=== PATIENT | male | born 1980 | race Caucasian/White ===

== ENCOUNTER 2019-01-09 05:56 | Observation (INO) | payer BC ==
[2019-01-09] VITALS (23 sets, daily range): BP systolic 101–131; BP diastolic 51–81; PULSE 82–112; RESP 10–21; Ht 182.9 cm; Wt 119.6 kg
[~2019-01-09] VITALS: Ht 182.9 cm; Wt 119.6 kg
[~2019-01-09 05:56] MED LIST: FINA1TAB16 PO; HYDR-3980 PO; TEST200V19 IM
[2019-01-09] MEDS ORDERED: ROPIVACAINE 0.5 % 30 ML VIAL ONE ×3 (06:51→13:46)
[2019-01-09] MEDS ORDERED: POLYMYXIN/BACITRACIN 1L IRRIG ONE ×2 (06:51→13:22)
[2019-01-09] MEDS ORDERED: BACITRACIN/POLYMYXIN 28.35 GM OINT TOP ONE (06:52)
--- NOTE | 2019-01-09 07:11 | PREAC ---
Date/Time of Note Date/Time of Note DATE: 01/09/19 TIME: 07:07 Anesthesia Eval and Record Evaluation Time Pre-Procedure Interview DATE: 01/09/19 TIME: 07:07 Age 38 Sex male NPO: 8 hrs Preoperative diagnosis Left ankle subtalar and talonavicular arthritis Planned procedure Left ankle subtalar and talonavicular arthrodesis with iliac crest bone graft and allograft Past Medical History Past Medical History: Includes Pulm: Smoking Hx GI: Obesity Surgery & Anesthesia Issues No known issue Meds Anticoagulation: No Beta Odette within 24 hr: No Reason Beta Odette not given: Pt. not on B-Odette Meds reviewed: Yes Allergies Coded Allergies: zolpidem (Verified Allergy, Unknown, 01/08/19) SLEEP WALKS Allergies Reviewed: Yes Labs/Studies Labs Reviewed: Reviewed by anesthesiologist test: N/A Pre-procedure Exam Airway: Adequate mouth opening Mallampati: Mallampati II Teeth: Normal Lung: Normal Heart: Normal ASA Physical Status ASA physical status: 2 Emergency: None Planned Anesthetic General/MAC: ETT Planned Pain Management Single shot nerve block, Parenteral pain med Pre-operative Attestations Prior to commencing anesthesia and surgery, the patient was re-evaluated, there was verification of: *The patient's identity *The results of appropriate recent lab work and preoperative vital signs *The above evaluation not changing prior to induction *Anesthetic plan, risk benefits, alternative and complications discussed with patient/family; questions answered; patient/family understands, accepts and wishes to proceed. EDUARD MACK MD Jan 09, 2019 07:11
[2019-01-09] MEDS ORDERED: LIDOCAINE 2% (SDV) 5 ML INJ ONE (07:24)
[2019-01-09] MEDS ORDERED: PROPOFOL 20 ML ONE (07:24)
[2019-01-09] MEDS ORDERED: SUCCINYLCHOLINE CHLORIDE 100 MG/5 ML SYG IV ONE (07:24)
[2019-01-09] MEDS ORDERED: NEOSTIGMINE 3 MG/3 ML SYRINGE ONE ×2 (07:24→07:33)
[2019-01-09] MEDS ORDERED: ROCURONIUM 50 MG INJ ONE ×2 (07:24→09:16)
[2019-01-09] MEDS ORDERED: GLYCOPYRROLATE 0.4 MG INJ ONE ×3 (07:24→07:33)
[2019-01-09] MEDS ORDERED: MIDAZOLAM 1 MG/ML 2 ML INJ ONE ×2 (07:25→08:07)
[2019-01-09] MEDS ORDERED: CEFAZOLIN 1 GM INJ ONE ×4 (07:33→13:09)
--- NOTE | 2019-01-09 08:03 | HPN ---
Date/Time of Note Date/Time of Note DATE: 01/09/19 TIME: 08:03 Interval H&P Admission Note Pt. seen H&P reviewed: No system changes TONYA RITTER MD Jan 09, 2019 08:03
[2019-01-09] MEDS ORDERED: HEPARIN 1000 UNITS/ML 10 ML INJ ONE (08:39)
[2019-01-09] MEDS ORDERED: POLYMYXIN/BACITRACIN 1L IRRIG IRR ONE (09:42)
[2019-01-09] MEDS ORDERED: ONDANSETRON 4 MG INJ IV PRN ×2 (11:00→18:00)
[2019-01-09] MEDS ORDERED: DIPHENHYDRAMINE 50 MG INJ IV PRN (11:00)
[2019-01-09] MEDS ORDERED: MEPERIDINE 25 MG INJ IV PRN (11:00)
[2019-01-09] MEDS ORDERED: OXYCODONE/ACETAMINOPHEN (5/325) TAB PO PRN ×2 (11:00)
[2019-01-09] MEDS ORDERED: MIDAZOLAM 1 MG/ML 2 ML INJ IV PRN (11:00)
[2019-01-09] MEDS ORDERED: FENTAnyl 50 MCG/ML VIAL IV PRN ×2 (11:00)
[2019-01-09] MEDS ORDERED: METOCLOPRAMIDE 10 MG INJ IV PRN (11:00)
[2019-01-09] MEDS ORDERED: HYDROmorphONE 1 MG/5 ML IV SYRINGE IV PRN ×2 (11:00)
[2019-01-09] MEDS: HYDROmorphONE 1 MG/5 ML IV SYRINGE IV PRN ×3 (14:15→14:36)
[2019-01-09] MEDS ORDERED: FENTAnyl 50 MCG/ML VIAL ONE (15:16)
[2019-01-09] MEDS ORDERED: ONDANSETRON 4 MG INJ ONE (15:17)
[2019-01-09] MEDS: FENTAnyl 50 MCG/ML VIAL IV PRN ×2 (15:19→16:18)
--- NOTE | 2019-01-09 15:25 | PAC ---
Date/Time of Note Date/Time of Note DATE: 01/09/19 TIME: 15:24 Post-Anesthesia Notes Post-Anesthesia Note Last documented vital signs Vital Signs Date Temp Pulse Resp B/P (MAP) Pulse Ox O2 O2 Flow FiO2 Time Delivery Rate 01/09/19 86 14 97 Room Air 14:46 01/09/19 101/51 14:26 (68) 01/09/19 98.9 14:14 Activity: WNL Respiratory function: WNL Cardiovascular function: WNL Mental status: Baseline Pain reasonably controlled: Yes Hydration appropriate: Yes Nausea/Vomiting absent: Yes Comments BT: 98.7 EDUARD MACK MD Jan 09, 2019 15:25
--- NOTE | 2019-01-09 16:02 | CONS ---
Assessment/Plan Assessment/Plan Assessment/Plan (Daily) Patient status post left ankle subtalar and talonavicular arthrodesis with iliac crest bone graft and allograft Past medical history of IV drug abuse with heroin Low pain threshold We will begin Dilaudid 1 mg continuous dose and Dilaudid 2 mg every 3 hours as needed with very low dose of lorazepam every 6 hours as needed we will watch patient very closely. Although I believe he is tolerant to opioids secondary to very high concentrations of [place] and tramadol he was taken prior to hospitalization and the past medical history of IV heroin use. Consultation Date/Type/Reason Admit Date/Time Jan 09, 2019 at 15:36 Date/Time of Note DATE: 01/09/19 TIME: 16:00 Hx of Present Illness This is a 38-year-old male who is postop left ankle subtalar and talonavicular arthrodesis with iliac crest bone graft and allograft. I am seeing patient in postop recovery at this time. Patient has a past medical history of addiction as he described it where he was IV heroin user. Although he states he has not used in many years. He has been maintained on Washington and Ultram for pain management by a pain management physician. However patient states he uses whatever he feels as necessary not necessarily scheduled doses. Patient's past medical history is significant for left ankle ORIF in the past secondary to a post traumatic injury. Since that time he is functioning reasonably well until pain returned and required above surgical intervention. Patient is comfortable at this time postoperatively but he has received a block and understands that his pain will return. Prior to surgery was described his pain is 10/10 unable to control the current pain control medication it interferes with his physical functioning social relationship and sleeping patterns. Postoperatively he is received a combination of fentanyl Dilaudid and Demerol. Denies nausea vomiting itching mental cloudiness or drowsiness at this time. There is no past medical history of oversedation or overdose on recreational drug use illicit drug use he does not appear to be intoxicated unkempt he is not negotiating with me for certain pain medication but is adamant that he will not use trazodone for sleeping or Ambien. I have explained to him I do not uses drugs anyway. He u nderstands that because of his past medical history may be very difficult to control his pain and have given him options. First option is DIELECTRIC TESTER Dilaudid which she states he does not want to use does not want to follow the clock. Second option continuous low-dose drip of Dilaudid with pushes by nursing staff as needed, third option is combination of methadone and Dilaudid. He has chosen the option for continuous low-dose of DIELECTRIC TESTER with as needed pushes of Dilaudid. I have also discussed with him the use of lorazepam low-dose he is in agreement. Constitutional: no complaints, improved Eyes: no complaints ENT: no complaints Respiratory: no complaints Cardiovascular: no complaints Gastrointestinal: no complaints Genitourinary: no complaints Musculoskeletal: no complaints, other (Refer to history of present illness) Skin: no complaints Neurologic: no complaints Endocrine: no complaints Lymphatic: no complaints Psychological: no complaints, nl mood/affect Immunologic: no complaints Past Medical History Medical History: other (Noncontributory) Home Meds Reported Medications Hydrocodone/Acetaminophen (Washington 10-325 Tablet) 1 Each Tablet, 1 EACH PO Q6 PRN for PAIN, TAB 01/09/19 Finasteride* (Finasteride*) 1 Mg Tablet, 1 MG PO HS, TAB 01/09/19 Testosterone Cypionate (Testosterone Cypionate) 200 Mg/1 Ml Vial, 200 MG IM, VIAL 01/09/19 Medications Current Medications Hydromorphone HCl (Dilaudid) 0.2 mg PACU PRN IV MILD PAIN 1-3; Start 01/09/19 at 11:00; Stop 01/09/19 at 20:00 Hydromorphone HCl (Dilaudid) 0.4 mg PACU PRN IV MOD PAIN 4-6 Last administered on 01/09/19at 14:36; Admin Dose 0.2 MG; Start 01/09/19 at 11:00; Stop 01/09/19 at 20:00 Hydromorphone HCl (Dilaudid) 0.6 mg PACU PRN IV SEVERE PAIN 7-10; Start 01/09/19 at 11:00; Stop 01/09/19 at 20:00 Fentanyl (Sublimaze) 25 mcg PACU ORDER PRN IV MILD PAIN 1-3; Start 01/09/19 at 11:00; Stop 01/09/19 at 20:00 Fentanyl (Sublimaze) 50 mcg PACU ORDER PRN IV MOD PAIN 4-6 Last administered on 01/09/19at 15:19; Admin Dose 50 MCG; Start 01/09/19 at 11:00; Stop 01/09/19 at 20:00 Fentanyl (Sublimaze) 75 mcg PACU ORDER PRN IV SEVERE PAIN 7-10; Start 01/09/19 at 11:00; Stop 01/09/19 at 20:00 Oxycodone/ Acetaminophen (Percocet (5/ 325)) 1 tab PACU ORDER PRN PO .PAIN 1-5; Start 01/09/19 at 11:00; Stop 01/09/19 at 20:00 Oxycodone/ Acetaminophen (Percocet (5/ 325)) 2 tab PACU ORDER PRN PO .PAIN 6-10; Start 01/09/19 at 11:00; Stop 01/09/19 at 20:00 Ondansetron HCl (Zofran Inj) 4 mg PACU ORDER PRN IV NAUSEA/VOMITING Last administered on 01/09/19at 15:18; Admin Dose 4 MG; Start 01/09/19 at 11:00; Stop 01/09/19 at 20:00 Metoclopramide HCl (Reglan) 10 mg PACU ORDER PRN IV NAUSEA/VOMITING; Start 01/09/19 at 11:00; Stop 01/09/19 at 20:00 Meperidine HCl (Demerol) 25 mg PACU ORDER PRN IV .RIGORS Last administered on 01/09/19at 14:57; Admin Dose 25 MG; Start 01/09/19 at 11:00; Stop 01/09/19 at 20:00 Diphenhydramine HCl (Benadryl) 25 mg PACU ORDER PRN IV .PRURITUS; Start 01/09/19 at 11:00; Stop 01/09/19 at 20:00 Midazolam HCl (Versed) 0.5 mg PACU ORDER PRN IV .ANXIETY; Start 01/09/19 at 11:00; Stop 01/09/19 at 20:00 Allergies: Coded Allergies: zolpidem (Verified Allergy, Unknown, 01/09/19) SLEEP WALKS Past Surgical History Past Surgical Hx: other (Per history of present illness) Family History Significant Family History: other (Mother and father in good health) Social History Alcohol Use: none Smoking Status: Current every day smoker Drug Use: other (Heroin user in the past) Exam/Review of Systems Exam Vitals Vital Signs Date Temp Pulse Resp B/P (MAP) Pulse Ox O2 O2 Flow FiO2 Time Delivery Rate 01/09/19 86 14 97 Room Air 14:46 01/09/19 101/51 14:26 (68) 01/09/19 98.9 14:14 Constitutional: alert, oriented, well developed Psych: anxiety Head: normocephalic, atraumatic Eyes: nl conjunctiva, EOMI, nl lids, nl sclera, PERRL ENMT: nl external ears & nose, nl lips & teeth, nl nasal mucosa & septum Respiratory: clear to auscultation, normal air movement; No congested cough, No crackles/rales, No diminished breath sounds, No intercostal retraction, No labored breathing, No respirations, No tactile fremitus, No wheezing, No other Cardiovascular: regular rate and rhythm, nl pulses; No bruits, No diastolic murmur, No edema, No gallop, No irregular rhythm, No jugular venous distention (JVD), No murmurs/extra sounds, No rub, No systolic murmur, No S3, No S4, No other Gastrointestinal: soft, nl liver, spleen, non-tender Neurological: CREDIT OFFICER II-XII intact, nl mental status, nl speech, nl strength; No confused, No DTR's symmetric, No focal weakness, No lethargic, No numbness, No reflexes, No unresponsive, No other Medications Medication Current Medications Hydromorphone HCl (Dilaudid) 0.2 mg PACU PRN IV MILD PAIN 1-3; Start 01/09/19 at 11:00; Stop 01/09/19 at 20:00 Hydromorphone HCl (Dilaudid) 0.4 mg PACU PRN IV MOD PAIN 4-6 Last administered on 01/09/19at 14:36; Admin Dose 0.2 MG; Start 01/09/19 at 11:00; Stop 01/09/19 at 20:00 Hydromorphone HCl (Dilaudid) 0.6 mg PACU PRN IV SEVERE PAIN 7-10; Start 01/09/19 at 11:00; Stop 01/09/19 at 20:00 Fentanyl (Sublimaze) 25 mcg PACU ORDER PRN IV MILD PAIN 1-3; Start 01/09/19 at 11:00; Stop 01/09/19 at 20:00 Fentanyl (Sublimaze) 50 mcg PACU ORDER PRN IV MOD PAIN 4-6 Last administered on 01/09/19at 15:19; Admin Dose 50 MCG; Start 01/09/19 at 11:00; Stop 01/09/19 at 20:00 Fentanyl (Sublimaze) 75 mcg PACU ORDER PRN IV SEVERE PAIN 7-10; Start 01/09/19 at 11:00; Stop 01/09/19 at 20:00 Oxycodone/ Acetaminophen (Percocet (5/ 325)) 1 tab PACU ORDER PRN PO .PAIN 1-5; Start 01/09/19 at 11:00; Stop 01/09/19 at 20:00 Oxycodone/ Acetaminophen (Percocet (5/ 325)) 2 tab PACU ORDER PRN PO .PAIN 6-10; Start 01/09/19 at 11:00; Stop 01/09/19 at 20:00 Ondansetron HCl (Zofran Inj) 4 mg PACU ORDER PRN IV NAUSEA/VOMITING Last administered on 01/09/19at 15:18; Admin Dose 4 MG; Start 01/09/19 at 11:00; Stop 01/09/19 at 20:00 Metoclopramide HCl (Reglan) 10 mg PACU ORDER PRN IV NAUSEA/VOMITING; Start 01/09/19 at 11:00; Stop 01/09/19 at 20:00 Meperidine HCl (Demerol) 25 mg PACU ORDER PRN IV .RIGORS Last administered on 01/09/19at 14:57; Admin Dose 25 MG; Start 01/09/19 at 11:00; Stop 01/09/19 at 20:00 Diphenhydramine HCl (Benadryl) 25 mg PACU ORDER PRN IV .PRURITUS; Start 01/09/19 at 11:00; Stop 01/09/19 at 20:00 Midazolam HCl (Versed) 0.5 mg PACU ORDER PRN IV .ANXIETY; Start 01/09/19 at 11:00; Stop 01/09/19 at 20:00 JOSSELIN SAVAGE Jan 09, 2019 16:02
[2019-01-09] MEDS ORDERED: LORAZEPAM 2 MG INJ IV PRN (16:30)
[2019-01-09] MEDS: HYDROmorphONE 0.2 MG/ML PCA IV SCH ×2 (17:41→22:39)
--- NOTE | 2019-01-09 17:49 | SIPON ---
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 Postoperative Diagnosis left subtalar and talonavicular joint post-traumatic OA Operation/Procedure Performed Left left subtalar and talonavicular joint arthrodesis with allograft and autograft from left iliac crest Left iliac crest bone marrow aspirate harvest Left iliac crest allograft harvest Surgeon Perfecto Ritter MD assistant athletic trainer TY Torres Anesthesia: general (Dr Orozco), other (pop/adductor block) Estimated blood loss: minimal Transfusion Required none Specimen none TT: 120 min at 250 mm Hg Grafts/Implants 2 Arthrex 6.5 mm headless compression screws, 1 4.3 mm screw Arthrex Dynanite staple Arthrex Arthrocell Allograft Arthrex [facility] Augment Cancellous Allograft chips Complications none PERFECTO RITTER MD Jan 09, 2019 17:49
[2019-01-09] MEDS: CEFAZOLIN 1 GM/50 ML (PMX) 50 ML IVPB SCH ×2 (17:57→23:36)
[2019-01-09] MEDS ORDERED: DIPHENHYDRAMINE 25 MG CAP PO PRN (18:00)
[2019-01-09] MEDS: GABAPENTIN 300 MG CAP PO SCH (21:58)
[2019-01-09] MEDS: HYDROmorphONE 2 MG/ML SYG IV PRN (23:52)
[2019-01-10 00:26] VITALS: BP 111/74; PULSE 104; RESP 20
[2019-01-10] MEDS: ACETAMINOPHEN 325 MG TAB PO PRN ×2 (02:15→07:27)
[2019-01-10] MEDS: HYDROmorphONE 2 MG/ML SYG IV PRN ×4 (02:57→11:57)
[2019-01-10 03:30] VITALS: BP 127/73; PULSE 97; RESP 20
[2019-01-10] MEDS: CEFAZOLIN 1 GM/50 ML (PMX) 50 ML IVPB SCH ×2 (05:08→11:57)
[2019-01-10] MEDS: HYDROmorphONE 0.2 MG/ML PCA IV SCH (05:59)
--- NOTE | 2019-01-10 08:02 | CONS ---
Assessment/Plan Assessment/Plan Assessment/Plan (Daily) Did well overnight ... will stop TIRE MOUNTER last prn dose of IV Dilaudid to be given just prior to discharge. Thank You Consultation Date/Type/Reason Admit Date/Time Jan 09, 2019 at 15:36 Initial Consult Date Date/Time of Note DATE: 01/10/19 TIME: 07:58 Exam/Review of Systems Exam Vitals Vital Signs Date Temp Pulse Resp B/P (MAP) Pulse Ox O2 O2 Flow FiO2 Time Delivery Rate 01/10/19 98.4 97 20 127/73 100 03:30 (91) 01/10/19 Nasal 2.0 01:16 Cannula Intake and Output 01/09/19 01/09/19 01/10/19 1515:00 23:00 07:00 IntakeIntake Total 600 ml OutputOutput Total 50 ml 600 ml 200 ml BalanceBalance 550 ml -600 ml -200 ml Constitutional: alert, oriented, well developed Psych: anxiety Neurological: WINDOW SHADE INSTALLER II-XII intact, nl mental status, nl speech, nl strength Results Results 24hrs Laboratory Tests Test 01/10/19 07:32 Lab Scanned Report REFERENCE LAB Medications Medication Current Medications Hydromorphone HCl (Dilaudid) 2 mg Q3H PRN IV SEVERE PAIN LEVEL 7-10 Last administered on 01/10/19at 05:59; Admin Dose 2 MG; Start 01/09/19 at 16:30 Hydromorphone HCl (Dilaudid TIRE MOUNTER) 1.0 MG/HR CONTINUOUS RATE ... Q4PCA IV Last administered on 01/10/19at 05:59; Admin Dose 6 MG; Start 01/09/19 at 16:30 Lorazepam (Ativan) 0.5 mg Q6H PRN IV AGITATION Last administered on 01/09/19at 21:59; Admin Dose 0.5 MG; Start 01/09/19 at 16:30 Ondansetron HCl (Zofran Inj) 4 mg Q4H PRN IV NAUSEA AND/OR VOMITING Last administered on 01/10/19at 07:06; Admin Dose 4 MG; Start 01/09/19 at 18:00 Diphenhydramine HCl (Benadryl) 25 mg Q4H PRN PO ITCHING; Start 01/09/19 at 18:00 Rivaroxaban (Xarelto) 10 mg WITH DINNER PO ; Start 01/10/19 at 17:55 Acetaminophen (Tylenol Tab) 325 mg Q4H PRN PO MILD PAIN(1-3)OR ELEVATED TEMP Last administered on 01/10/19at 07:27; Admin Dose 325 MG; Start 01/09/19 at 18:00 Gabapentin (Neurontin) 300 mg TID PO Last administered on 01/09/19at 21:58; Admin Dose 300 MG; Start 01/09/19 at 21:00 Cefazolin Sodium 50 ml @ 100 mls/hr Q6 IVPB Last administered on 01/10/19at 05:08; Admin Dose 100 MLS/HR; Start 01/09/19 at 18:00; Stop 01/10/19 at 16:59 JOSSELIN SAVAGE Jan 10, 2019 08:02
[2019-01-10 08:16] VITALS: BP 124/74; PULSE 87; RESP 20
[2019-01-10] MEDS: GABAPENTIN 300 MG CAP PO SCH ×2 (09:07→12:08)
--- NOTE | 2019-01-10 12:28 | PN ---
Date/Time of Note Date/Time of Note DATE: 01/10/19 TIME: 12:22 Subjective Patient is doing well and would like to go home. 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 Seeing Dr. Falcon for pain management. Has appointment for followup in clinic in one week. Objective Vitals Vital Signs Date Temp Pulse Resp B/P (MAP) Pulse Ox O2 O2 Flow FiO2 Time Delivery Rate 01/10/19 98.6 87 20 124/74 95 08:16 (91) 01/10/19 Nasal 2.0 01:16 Cannula Intake and Output 01/09/19 01/09/19 01/10/19 1515:00 23:00 07:00 IntakeIntake Total 600 ml OutputOutput Total 50 ml 600 ml 200 ml BalanceBalance 550 ml -600 ml -200 ml PT AAOx3. Sitting comfortably in no distress. Has left foot splint. Can wiggle toes and has sensation distally at toes. Medications Medications Current Medications Hydromorphone HCl (Dilaudid) 2 mg Q3H PRN IV SEVERE PAIN LEVEL 7-10 Last administered on 01/10/19at 11:57; Admin Dose 2 MG; Start 01/09/19 at 16:30 Ondansetron HCl (Zofran Inj) 4 mg Q4H PRN IV NAUSEA AND/OR VOMITING Last administered on 01/10/19at 07:06; Admin Dose 4 MG; Start 01/09/19 at 18:00 Diphenhydramine HCl (Benadryl) 25 mg Q4H PRN PO ITCHING; Start 01/09/19 at 18:00 Rivaroxaban (Xarelto) 10 mg WITH DINNER PO ; Start 01/10/19 at 17:55 Acetaminophen (Tylenol Tab) 325 mg Q4H PRN PO MILD PAIN(1-3)OR ELEVATED TEMP Last administered on 01/10/19at 07:27; Admin Dose 325 MG; Start 01/09/19 at 18:00 Gabapentin (Neurontin) 300 mg TID PO Last administered on 01/10/19at 09:07; Admin Dose 300 MG; Start 01/09/19 at 21:00 Cefazolin Sodium 50 ml @ 100 mls/hr Q6 IVPB Last administered on 01/10/19at 11:57; Admin Dose 100 MLS/HR; Start 01/09/19 at 18:00; Stop 01/10/19 at 16:59 VTE Prophylaxis Risk score (from Ns)>0 risk: 8 SCD applied (from Ns): No SCD contraindication: low risk/ambulating, other Lines/Catheters IV Catheter Type: Peripheral IV Guo in Place: No Assessment/Plan Hospital Course Will discharge today. Assessment/Plan Doing well postoperatively and will be discharged home following final pain mgmt consult with Dr. Falcon for outpatient meds. DUNIA ARANDA PA-C Jan 10, 2019 12:28
--- NOTE | 2019-01-10 12:37 | PDOCDIS ---
Discharge Instructions DIAGNOSIS Discharge Diagnosis S/P uncomplicated left foot surgery. Doing well and pain managed by pain specialist. Will take aspirin as prescribed by Dr. Cardoso outpatient. CONDITION [id number] Patient Condition: Ketan Good HOME CARE INSTRUCTIONS: Mao Diet Instructions: Ketan Regular ACTIVITY: [id number] Activity Restrictions: [id number] Slowly Increase Activity Rest between Activity Avoid heavy lifting Do not operate Machinery Do not operate Power Tool Avoid Heavy Housework Keep Limb Elevated No Weight Bearing [id number] Bathing Restrictions: [id number] Shower [id number] Activity Restrictions [id number] Continue walker/crutch use Comment: with no weightbearing on left leg. FOLLOW UP/APPOINTMENTS Follow-up Plan Return to clinic in one week. REFERRALS [id number] Referring Provider: TONYA Kim MD, ABRAHAM PA-C Jan 10, 2019 12:37
[2019-01-10] MEDS ORDERED: RIVAROXABAN 10 MG TABLET PO SCH (17:55)
--- NOTE | 2019-01-16 10:45 | QN ---
Documentation Job number: [id number] TONYA RITTER MD Jan 16, 2019 10:45
--- NOTE | 2019-01-16 12:00 | OPR ---
DATE OF OPERATION: 01/09/2019 PREOPERATIVE DIAGNOSIS: 1. Left subtalar joint posttraumatic osteoarthritis. 2. Left talonavicular joint posttraumatic osteoarthritis POSTOPERATIVE DIAGNOSIS: 1. Left subtalar joint posttraumatic osteoarthritis. 2. Left talonavicular joint posttraumatic osteoarthritis OPERATION PERFORMED: 1. Left foot subtalar joint arthrodesis with allograft and autograft and left iliac crest. 2. Left iliac crest bone marrow harvest. 3. Left iliac crest autograft harvest. SURGEON: Perfecto Ritter MD FURNACE MECHANIC HELPER: TY Torres ANESTHESIOLOGIST: Dr. Orozco. ANESTHESIA TYPE: Popliteal adductor block and general. ESTIMATED BLOOD LOSS: Minimal. TOURNIQUET TIME: 120 minutes at 250mmHg. SPECIMENS: None. IMPLANTS: 1. Two Arthrex 6.5 mm headless compression screws. 2. Arthrex one 3.5 mm screw. 3. Arthrex Dynannite staple 4. Arthro Cell allograft. 5. [employer] augment. 6. Arthrex Amnion. 7. Cancellous allograft chips. INDICATIONS: The patient is an 38-year-old male with a history of a significant open ankle fracture dislocation approximately 20 years ago, treated with a blade plate ankle fusion and given he has ongoing pain in the talonavicular, subtalar joint, it is likely posttraumatic in nature. Patient indicated for surgery. Risk Note: Patient was explained the risks and benefits of surgery and the patient's [place] language including not limited to infection, bleeding, injury to blood vessels, nerves, ligaments or tendons. Risks of anesthesia, deep vein thrombosis and need for reduce future surgery. Patient acknowledged these risk by signing the surgical consent form. OPERATIVE NOTE: Patient was met in the preoperative holding area and the correct operative extremity was marked and confirmed with both patient and consent. Patient was brought to the operative theater placed supine on the operative table. He was given preoperative antibiotics and anesthesia and regional block anesthesia. Patient was then prepped and draped in the normal sterile fashion. Timeout was taken and all parties in the room agreed it was correct patient extremity and procedure. Initially attention was turned to the left iliac crest where bone marrow aspirate concentrate and bone graft was harvested using an Acumed bone graft harvester reamer. Wound was irrigated and closed with a 4-0 Monocryl and Steri- Strips. Attention was initially turned to the lateral portion of the ankle and a sinus Tarsi approach was made in the typical fashion. It was taken down with care to avoid any injury to this or any neurovascular structures. The subtalar joint was then identified. In the typical fashion removing all cartilage is well as further debrided with both a bur and a curette and a osteotome. The remainder of the subtalar joint was then prepared typical fashion and packed with a K wire to further ensure bleeding at the bony edges. The joint was then packed with both the autograft and allograft that included the arthro cell and augment mixed with the bone marrow aspirate concentrate and the iliac crest autograft. 2 screws that were headless and 6.5 in nature were then placed across the subtalar joint in the typical fashion from posterior to anterior. Showed excellent compression at this time. The wound was closed with a 2-0 Vicryl followed by 3- 0 Monocryl and a 4-0 nylon in a vertical mattress fashion. The heel wound was closed with a 3-0 nylon. Attention was then turned to the talonavicular joint and a dorsal medial incision was made in the typical fashion and the talonavicular joint was then prepared and identified while the tendons and neurovascular structures were retracted and protected. Once the talonavicular joint was prepared in typical fashion and the cartilage was denuded the joint was then packed again with the autograft and allograft mixture and a Dynanite staple was then placed over the dorsal medial portion of the talonavicular joint. This showed excellent compression on x-ray and a screw was then placed from dorsal medial across the talonavicular joint as well. This was shown to have excellent compression and all views on fluoroscopy. The wound was then further packed with the allograft autograft mixture and then closed in layers with a 2-0 Vicryl followed by 3-0 Monocryl and a 4-0 nylon. Hemostasis was achieved after tourniquet was brought down and the wound was then dressed with Xeroform and triple antibiotic ointment and placed in a well-padded short leg splint. Patient was brought to the PACU in stable condition and all sponge and needle counts were correct. His toes were warm and well perfused Dictated By: PERFECTO RITTER MD EIF/NTS Conf#: [id number] DID#: [id number] [facility]
== END 2019-01-10 13:21 | disposition home or self-care (01) ==
LOC: SDS 05:56 → REC 15:36 → MS1 20:21
PROVIDERS: ADMIT Orthopaedic Surgery; ATTEND Orthopaedic Surgery
DX: M19.172 Post-traumatic osteoarthritis, left ankle and foot (principal)
CPT/HCPCS: 20900; 28725; 73610; 82306; 97162; C1762; G0378; J0690; J1170; J1644; J2060; J2175; J2250; J2405; J2710; J2795; J3010